=== PATIENT | female | born 1955 | race Caucasian/White ===

== ENCOUNTER → 2017-08-11 | Outpatient (CLI) | payer OTHER ==
[~2017-08-11] MED LIST: CALCIUM500 MG PO; ESTRADIOL 1 MG T1 M1 PO; PROVERA5 MG PO; TYLENOL PM EX-1 EACH PO; VITAMIN D1000 UNI1 PO
== END ==
LOC: RAD 13:51
DX: Z12.31 Encounter for screening mammogram for malignant neoplasm of breast (principal)